=== PATIENT | male | born 1950 | race Caucasian/White ===

== ENCOUNTER 2018-08-22 17:08 | Emergency (ER) | payer MEDICARE, BC ==
[2018-08-22] MEDS ORDERED: Lidocaine 2% Jelly 10 ML Urojet MUCMEM ONE (17:54)
--- NOTE | 2018-08-22 18:00 | EDM.PDOC ---
<Dean Farias - Last Filed: 08/22/18 19:31> ED HPI GENERAL MEDICAL PROBLEM - General Chief Complaint: Genitourinary Problem Stated Complaint: UNABLE TO URINATE Time Seen by Provider: 08/22/18 17:42 - Related Data Allergies Allergy/AdvReac Type Severity Reaction Status Date / Time hydromorphone [From Dilaudid] Allergy Hallucinati Verified 08/22/18 17:40 ons Home Meds: Home Meds Sulfamethoxazole/Trimethoprim [Septra DS] 1 tab PO Q12H #10 tablet 08/22/18 [Rx] Course - Vital Signs Last Recorded V/S: Last Vital Signs Temp 36.0 C 08/22/18 17:38 Pulse 94 08/22/18 17:38 Resp 20 08/22/18 17:38 BP 215/114 H 08/22/18 17:38 Pulse Ox 92 L 08/22/18 17:38 - Orders/Labs/Meds Labs: Laboratory Tests 08/22/18 Range/Units 18:00 Urine Color Yellow (Yellow) Urine Appearance Cloudy H (Clear) Urine pH 7.0 (5.0-8.0) Ur Specific [place] 1.020 (1.005-1.030) Urine Protein 1+ H (Negative) Urine Glucose (UA) Negative (Negative) Urine Ketones Negative (Negative) Urine Occult Blood 2+ H (Negative) Urine Nitrite Negative (Negative) Urine Bilirubin Negative (Negative) Urine Urobilinogen 0.2 (0.2-1.0) Ur Leukocyte Esterase 2+ H (Negative) Urine RBC 20-30 H (0-5) /hpf Urine WBC 40-50 H (0-5) /hpf Ur Squamous Epith Cells 20-30 H (0-5) /hpf Urine Bacteria Many H (FEW) /hpf Urine Mucus Not seen (FEW) /hpf Meds: Medications Discontinued Medications Generic Name Dose Route Start Last Admin Trade Name Freq PRN Reason Stop Dose Admin Lidocaine HCl 10 ml 08/22/18 17:54 08/22/18 19:14 Xylocaine 2% Jelly MUCMEM 08/22/18 17:55 10 ml ONETIME ONE Administration Lidocaine HCl Confirm 08/22/18 18:35 08/22/18 19:28 Xylocaine 2% Jelly Administered 08/22/18 18:36 Not Given Dose 10 ml .ROUTE .STK-MED ONE Trimethoprim/Sulfamethoxazole 1 tab 08/22/18 18:20 08/22/18 19:14 Septra Ds PO 08/22/18 18:21 1 tab ONETIME ONE Administration - Re-Assessments/Exams Free Text/Narrative Re-Assessment/Exam: 08/22/18 19:36 Patient had well over 500 mL out and is feeling much better. The got a small size a Collins catheter in place that appears to be working very well the patient is no longer in pain history good amounts of urine still. Patient will be discharged home Departure - Departure Time of Disposition: 19:31 Disposition: Home, Self-Care 01 Clinical Impression: Urinary obstruction, UTI (urinary tract infection) - Discharge Information Prescriptions: Sulfamethoxazole/Trimethoprim [Septra DS] 1 tab PO Q12H #10 tablet Instructions: Urinary Tract Infection, Adult, [id number] Referrals: Carlos Wells MD [Primary Care Provider] - Radha Bhatia MD [Consulting Physician] - Forms: ED Department Discharge Additional Instructions: You were seen in the emergency room for the inability to urinate since noon. Workup in the ER included a bladder scan, which found approximately 500 mL of urine in your bladder. A catheter was placed to drain your bladder. Empty the bag as instructed by the nurse. Make sure that the bag is below your body height when you lie down, so that urine does not backflow into your bladder. Your urinalysis indicates that you have a urinary tract infection. A sample of your urine has been sent for culture. You have been started on the antibiotic Bactrim, also known as Septra. A prescription for Septra has been sent to the [facility], located in the [facility] grocery store. Take one tablet of Septra every 12 hours, starting tomorrow morning, 08/23/2018, as prescribed. Finish the entire prescription unless told otherwise by Dr. Bhatia. Follow-up with your Urologist, Dr. Bhatia, in approximately 3 days = 08/25/2018. At that visit, have them check on your urine culture results, to make sure that you are on the correct antibiotic. If any other problems, please do not hesitate to return to the ER. Follow-up with your regular provider for a recheck your blood pressure on Friday. <Elier Tomas - Last Filed: 08/24/18 20:14> ED HPI GENERAL MEDICAL PROBLEM - General Source of Information: Reports: Patient, Family (), RN Notes Reviewed History Limitations: Reports: No Limitations - History of Present Illness INITIAL COMMENTS - FREE TEXT/NARRATIVE: The patient has a history of prostate cancer, status post radioactive prostate seeding around 2003. His states that he gets urinary tract infections about 2-3 times a year. He's had difficulty urinating for the past few weeks, and unable to urinate at all since around noon today. He states that he was seen at the walk-in clinic in [place] earlier today. A urinalysis was performed , which, the patient was told, looked good. He was told that a culture was sent , but he was not started on antibiotics. No bladder scan was performed. He now presents to our ED in some distress, due to the inability to urinate, with suprapubic abdominal pain. He denies having flank pain. No recent fever. No recent nausea or vomiting. The patient's PCP is Dr. Carlos Wells His Urologist is Dr. Radha Bhatia. Bladder Pain Score (Numeric/FACES): 10 Past Medical History HEENT History: Reports: Impaired Vision Cardiovascular History: Reports: CAD, Heart Failure, High Cholesterol, Hypertension, [place] (2001) Respiratory History: Reports: Asthma (suspected), Sleep Apnea (nightly CPAP 13) Musculoskeletal History: Reports: Back Pain, Chronic, Osteoarthritis Endocrine/Metabolic History: Reports: Hypothyroidism, Obesity/BMI 30+ Oncologic (Cancer) History: Reports: Prostate - Past Surgical History Cardiovascular Surgical History: Reports: Coronary Artery Bypass (3 vessel, 2001 ), Coronary Artery Stent (x 4 total), Other (See Below) (coronary angiogram x 3) Male Surgical History: Reports: Prostate Biopsy, Other (See Below) ( Radioactive prostate seeding around 2003) Social & Family History - Tobacco Use Smoking Status *Q: Never Smoker - Alcohol Use Alcohol Use History: No - Recreational Drug Use Recreational Drug Use: No - Living Situation & Occupation Living situation: Reports: , with Spouse, with Family (1 child) Occupation: Retired ED ROS GENERAL - Review of Systems Review Of Systems: ROS reveals no pertinent complaints other than HPI. ED EXAM, RENAL/ - Physical Exam Exam: See Below Exam Limited By: No Limitations General Appearance: Alert, WD/WN, Mild Distress (uncomfortable while urinary catheter is being placed) Eye Exam: Bilateral Eye: EOMI, Normal Inspection Ears: Normal External Exam, Hearing Grossly Normal Nose: Normal Inspection Throat/Mouth: Normal Inspection, Normal Lips, Normal Voice, No Airway Compromise Head: Atraumatic, Normocephalic Neck: Normal Inspection, Full Range of Motion Respiratory/Chest: No Respiratory Distress, Lungs Clear, Normal Breath Sounds, No Accessory Muscle Use Cardiovascular: Normal Peripheral Pulses, Regular Rate, Rhythm, No Gallop, No JVD, No Murmur, No Rub GI/Abdominal: Normal Bowel Sounds, Soft, Non-Tender (including suprapubically), No Organomegaly, No Distention, No Abnormal Bruit, No Mass, Other (Obese) (Male) Exam: No: Circumcised Rectal (Males) Exam: Deferred Extremities: Normal Inspection, Normal Range of Motion, Normal Capillary Refill Neurological: Alert, Oriented, Normal Cognition, No Motor/Sensory Deficits Psychiatric: Normal Affect Skin Exam: Warm, Dry, Intact, Normal Color, No Rash Course - Orders/Labs/Meds Labs: Laboratory Tests 08/22/18 Range/Units 18:00 Urine Color Yellow (Yellow) Urine Appearance Cloudy H (Clear) Urine pH 7.0 (5.0-8.0) Ur Specific [place] 1.020 (1.005-1.030) Urine Protein 1+ H (Negative) Urine Glucose (UA) Negative (Negative) Urine Ketones Negative (Negative) Urine Occult Blood 2+ H (Negative) Urine Nitrite Negative (Negative) Urine Bilirubin Negative (Negative) Urine Urobilinogen 0.2 (0.2-1.0) Ur Leukocyte Esterase 2+ H (Negative) Urine RBC 20-30 H (0-5) /hpf Urine WBC 40-50 H (0-5) /hpf Ur Squamous Epith Cells 20-30 H (0-5) /hpf Urine Bacteria Many H (FEW) /hpf Urine Mucus Not seen (FEW) /hpf - Re-Assessments/Exams Free Text/Narrative Re-Assessment/Exam: 08/22/18 17:59 The bladder scan read 492, 522, and 487 mL of urine. A pediatric-sized Collins catheter has been able to be placed, and is beginning to drain urine. I have ordered a urinalysis, but I do not see an indication for any other workup at this time. The Collins will be placed to a leg bag, and the patient can follow-up with his Urologist. 08/22/18 18:20 The patient's urinalysis is consistent with a UTI. I have ordered a urine culture, and will start him on oral Bactrim. As above, I will discharge him home with a Collins to leg bag, and have him follow-up with his Urologist this week. 08/22/18 18:28 Notified that Judith PERRY is having difficulty with the Collins catheter. She is able to advance the catheter into the urethra and is draining urine, but the patient complains of severe pain whenever she tries to inflate the balloon, suggesting that the tip is not in the bladder. I had her remove the catheter. She will Urojet, then try placing a coud catheter. 08/22/18 19:[address] Farias, and care of the patient turned over to him at this time, for change of shift. Departure - Departure Condition: Good - Discharge Information *PRESCRIPTION DRUG MONITORING PROGRAM REVIEWED*: Not Applicable *COPY OF PRESCRIPTION DRUG MONITORING REPORT IN PATIENT KEO: Not Applicable
[2018-08-22] MEDS ORDERED: Sulfamethoxazole/Trimethoprim 800-160 MG Tab PO ONE (18:20)
[2018-08-22] MEDS ORDERED: Lidocaine 2% Jelly 10 ML Urojet ONE (18:35)
== END 2018-08-22 19:56 | disposition home or self-care (01) ==
LOC: JD.ED 17:08
DX: N13.9 Obstructive and reflux uropathy, unspecified (principal); N39.0 Urinary tract infection, site not specified; I11.0 Hypertensive heart disease with heart failure; I50.9 Heart failure, unspecified; Z79.899 Other long term (current) drug therapy; E78.00 Pure hypercholesterolemia, unspecified; I25.2 Old myocardial infarction; I25.10 Atherosclerotic heart disease of native coronary artery without angina pectoris; E03.9 Hypothyroidism, unspecified; J45.909 Unspecified asthma, uncomplicated; Z95.1 Presence of aortocoronary bypass graft; Z85.46 Personal history of malignant neoplasm of prostate; Z88.5 Allergy status to narcotic agent
CPT/HCPCS: 51702; 51798; 81001; 87086; 99283; A9270-GY

== ENCOUNTER 2019-09-19 15:38 | Emergency (ER) | payer MEDICARE, BC ==
[2019-09-19] MEDS ORDERED: Sodium Chloride 0.9% 10 ML Syringe FLUSH PRN (15:55)
--- NOTE | 2019-09-19 17:01 | EDM.PDOC ---
ED HPI GENERAL MEDICAL PROBLEM - General Chief Complaint: Cardiovascular Problem Stated Complaint: LOW PULSE Time Seen by Provider: 09/19/19 15:44 Source of Information: Reports: Patient History Limitations: Reports: No Limitations - History of Present Illness INITIAL COMMENTS - FREE TEXT/NARRATIVE: Patient is a 69-year-old male who presents to the emergency department with complaints of a low pulse. He states that yesterday he was "feeling not right ". He put on his pulse ox and it showed that his pulse was in the 30s. Today he went to the [facility] walk-in clinic for his symptoms of fatigue and dyspnea with exertion. He denies any chest pain or dizziness. He was referred to the emergency department by the [facility] walk-in [facility]. He does have a history of bypass 12 to 15 years ago, as well as stents 8 to 10 years ago. These were done at [facility] in [place]. Past medical history is otherwise significant for coronary artery disease, heart failure, high cholesterol, hypertension, asthma, and sleep apnea. - Related Data Allergies Allergy/AdvReac Type Severity Reaction Status Date / Time hydromorphone [From Dilaudid] Allergy Hallucinati Verified 09/19/19 15:49 ons Home Meds: Home Meds Isosorbide Dinitrate 10 mg PO BID 09/19/19 [History] Losartan [Cozaar] 100 mg PO DAILY 09/19/19 [History] carvediloL [Carvedilol] 25 mg PO BID 09/19/19 [History] Past Medical History HEENT History: Reports: Impaired Vision Cardiovascular History: Reports: CAD, Heart Failure, High Cholesterol, Hypertension, [place] Other Cardiovascular History: triple bypass and unsure of stents possbily 4 total Respiratory History: Reports: Asthma, Sleep Apnea Genitourinary History: Reports: Prostate Disorder Musculoskeletal History: Reports: Back Pain, Chronic, Osteoarthritis Endocrine/Metabolic History: Reports: Hypothyroidism, Obesity/BMI 30+ Oncologic (Cancer) History: Reports: Prostate - Past Surgical History Cardiovascular Surgical History: Reports: Coronary Artery Bypass, Coronary Artery Stent, Other (See Below) Male Surgical History: Reports: Prostate Biopsy, Other (See Below) Social & Family History - Tobacco Use Smoking Status *Q: Never Smoker - Caffeine Use Caffeine Use: Reports: Soda - Recreational Drug Use Recreational Drug Use: No - Living Situation & Occupation Living situation: Reports: , with Spouse, with Family (1 child) Occupation: Retired ED ROS GENERAL - Review of Systems Review Of Systems: See Below Constitutional: Reports: Fatigue. Denies: Fever, Chills HEENT: Reports: No Symptoms Respiratory: Reports: No Symptoms. Denies: Shortness of Breath, Cough Cardiovascular: Reports: Dyspnea on Exertion. Denies: Chest Pain, Edema, Lightheadedness, Orthopnea, Palpitations, Syncope Endocrine: Reports: No Symptoms GI/Abdominal: Reports: No Symptoms : Reports: No Symptoms Musculoskeletal: Reports: No Symptoms, Muscle Pain Neurological: Reports: No Symptoms Psychiatric: Reports: No Symptoms Hematologic/Lymphatic: Reports: No Symptoms Immunologic: Reports: No Symptoms ED EXAM, GENERAL - Physical Exam Exam: See Below Exam Limited By: No Limitations General Appearance: Alert, WD/WN, No Apparent Distress Respiratory/Chest: No Respiratory Distress, Lungs Clear, Normal Breath Sounds, No Accessory Muscle Use, Chest Non-Tender Cardiovascular: Normal Peripheral Pulses, No Edema, No Gallop, No JVD, No Murmur , No Rub, Other (Regularly irregular) GI/Abdominal: Normal Bowel Sounds, Soft, Non-Tender, No Organomegaly, No Distention, No Abnormal Bruit, No Mass Extremities: Normal Inspection, Normal Range of Motion, Non-Tender, Normal Capillary Refill, No Pedal Edema Neurological: Alert, Oriented, CN II-XII Intact, Normal Cognition, Normal Gait, Normal Reflexes, No Motor/Sensory Deficits Psychiatric: Normal Affect, Normal Mood Skin Exam: Warm, Dry, Intact, Normal Color, No Rash Course - Vital Signs Last Recorded V/S: Last Vital Signs Temp 97.1 F 09/19/19 15:45 Pulse 30 L 09/19/19 15:45 Resp 20 09/19/19 15:45 BP 166/86 H 09/19/19 15:45 Pulse Ox 93 L 09/19/19 15:45 - Orders/Labs/Meds Orders: Active Orders 24 hr Category Date Time Status Cardiac Monitoring [RC] . DIRECTED Care 09/19/19 15:55 Active EKG Documentation Completion [RC] STAT Care 09/19/19 15:55 Active Holter Monitor 48 Hours [RC] .PRN Care 09/19/19 20:10 Active Peripheral IV Care [RC] . DIRECTED Care 09/19/19 15:55 Active Chest 1V Frontal [CR] Stat Exams 09/19/19 15:55 Taken Peripheral IV Insertion Adult [OM.PC] Stat Oth 09/19/19 15:55 Ordered Labs: Laboratory Tests 09/19/19 09/19/19 09/19/19 Range/Units 16:12 16:12 16:24 WBC 6.42 (4.23-9.07) K/mm3 RBC 4.08 L (4.63-6.08) M/mm3 Hgb 12.7 L (13.7-17.5) gm/dl Hct 40.6 (40.1-51.0) % MCV 99.5 H (79.0-92.2) fl MCH 31.1 (25.7-32.2) pg MCHC 31.3 L (32.2-35.5) g/dl RDW Std Deviation 49.5 H (35.1-43.9) fL Plt Count 183 (163-337) K/mm3 MPV 9.7 (9.4-12.3) fl Neut % (Auto) 70.3 H (34.0-67.9) % Lymph % (Auto) 17.4 L (21.8-53.1) % [place] % (Auto) 10.9 (5.3-12.2) % Eos % (Auto) 1.1 (0.8-7.0) Baso % (Auto) 0.3 (0.1-1.2) % Neut # (Auto) 4.51 (1.78-5.38) K/mm3 Lymph # (Auto) 1.12 L (1.32-3.57) K/mm3 [place] # (Auto) 0.70 (0.30-0.82) K/mm3 Eos # (Auto) 0.07 (0.04-0.54) K/mm3 Baso # (Auto) 0.02 (0.01-0.08) K/mm3 Sodium 143 (136-145) mEq/L Potassium 4.2 (3.5-5.1) mEq/L Chloride 105 (98-107) mEq/L Carbon Dioxide 30 (21-32) mEq/L Anion Gap 12.2 (5-15) BUN 21 H (7-18) mg/dL Creatinine 1.1 (0.7-1.3) mg/dL Est Cr Clr Drug Dosing 62.18 mL/min Estimated GFR (MDRD) > 60 (>60) mL/min BUN/Creatinine Ratio 19.1 H (14-18) Glucose 122 H (80-115) mg/dL Calcium 9.6 (8.5-10.1) mg/dL Phosphorus (2.6-4.7) mg/dL Magnesium 1.8 (1.8-2.4) mg/dl Total Bilirubin 0.7 (0.2-1.0) mg/dL AST 20 (15-37) U/L ALT 45 (16-63) U/L Alkaline Phosphatase 34 L (46-116) U/L Troponin I 0.040 (0.00-0.056) ng/mL NT-Pro-B Natriuret Pep (0-125) pg/mL Total Protein 6.6 (6.4-8.2) g/dl Albumin 3.5 (3.4-5.0) g/dl Globulin 3.1 gm/dL Albumin/Globulin Ratio 1.1 (1-2) Free T4 0.83 (0.76-1.46) ng/dL TSH 3rd Generation 3.936 H (0.358-3.74) uIU/mL 09/19/19 09/19/19 09/19/19 Range/Units 16:24 16:24 19:12 WBC (4.23-9.07) K/mm3 RBC (4.63-6.08) M/mm3 Hgb (13.7-17.5) gm/dl Hct (40.1-51.0) % MCV (79.0-92.2) fl MCH (25.7-32.2) pg MCHC (32.2-35.5) g/dl RDW Std Deviation (35.1-43.9) fL Plt Count (163-337) K/mm3 MPV (9.4-12.3) fl Neut % (Auto) (34.0-67.9) % Lymph % (Auto) (21.8-53.1) % [place] % (Auto) (5.3-12.2) % Eos % (Auto) (0.8-7.0) Baso % (Auto) (0.1-1.2) % Neut # (Auto) (1.78-5.38) K/mm3 Lymph # (Auto) (1.32-3.57) K/mm3 [place] # (Auto) (0.30-0.82) K/mm3 Eos # (Auto) (0.04-0.54) K/mm3 Baso # (Auto) (0.01-0.08) K/mm3 Sodium (136-145) mEq/L Potassium (3.5-5.1) mEq/L Chloride (98-107) mEq/L Carbon Dioxide (21-32) mEq/L Anion Gap (5-15) BUN (7-18) mg/dL Creatinine (0.7-1.3) mg/dL Est Cr Clr Drug Dosing mL/min Estimated GFR (MDRD) (>60) mL/min BUN/Creatinine Ratio (14-18) Glucose (80-115) mg/dL Calcium (8.5-10.1) mg/dL Phosphorus 4.9 H (2.6-4.7) mg/dL Magnesium (1.8-2.4) mg/dl Total Bilirubin (0.2-1.0) mg/dL AST (15-37) U/L ALT (16-63) U/L Alkaline Phosphatase (46-116) U/L Troponin I 0.043 (0.00-0.056) ng/mL NT-Pro-B Natriuret Pep 3363 H (0-125) pg/mL Total Protein (6.4-8.2) g/dl Albumin (3.4-5.0) g/dl Globulin gm/dL Albumin/Globulin Ratio (1-2) Free T4 (0.76-1.46) ng/dL TSH 3rd Generation (0.358-3.74) uIU/mL Meds: Medications Discontinued Medications Generic Name Dose Route Start Last Admin Trade Name Freq PRN Reason Stop Dose Admin Sodium Chloride 10 ml 09/19/19 15:55 09/19/19 17:00 Saline Flush FLUSH 10 ml ASDIRECTED PRN Administration Keep Vein Open - Re-Assessments/Exams Free Text/Narrative Re-Assessment/Exam: On exam, patient's heart rate is irregularly irregular. supervisor operations shows a heart rate of 59, however he is in ventricular bigeminy and only perfusing every other beat. Pulse rate is 30. Patient has been overall asymptomatic. He has had no dizziness or significant shortness of breath. He states he has felt more tired than normal and if he exerts himself he becomes short of breath. Pacer pads have been applied out of precaution. We will complete a cardiac work-up including CBC, CMP, lipase, magnesium, TSH, free T4, EKG, and chest x-ray. Once results are available, I will consult cardiology. He states that his health technician is Dr. Marshall at [facility] in [place]. 09/19/19 17:49 Hematology was significant for slightly low at 12.7, BUN 21, TSH slightly elevated at 3.936. Troponin was found to be negative. Called and spoke with the health technician on-call at [facility], Dr. Whitmore. She reviewed the EKG. She recommended that we repeat a troponin at 3 hours past the previous draw. If troponin is still negative, she recommended that we hook the patient up to 48-hour Holter monitor, order an outpatient echocardiogram and stress test and have him follow-up with his health technician Dr. Mireles as soon as possible. She verbalized that if he would develop chest pain that he would need to be admitted, otherwise he will would be able to go home. On review of the mainframe systems engineer, patient has been going in and out of bigeminy. He does have periods where he is in normal sinus rhythm perfusing all beats. He continues to deny any shortness of breath or chest pain. 09/19/19 20:11 Repeat troponin was also negative. Patient has been in normal sinus rhythm more often than in ventricular bigeminy for the last couple hours. Repeat EKG was completed of normal sinus rhythm and no acute ischemia or cute abnormalities were found. He continues to be free of chest pain, dizziness, and shortness breath. We will discharge patient home on 48-hour Holter monitor as recommended by [facility] cardiology. Patient's blood pressure is elevated at 194/ 69. He is due to take his evening dose of his home medications of losartan, carvedilol, and isosorbide. He took those medications now. He does not want to wait in the ER for the medications to take effect and for a lower blood pressure reading. He would like to go home. Completed outpatient orders for a Cardiolyte stress test as well as an echocardiogram. Patient is going to call his health technician Dr. Marshall first thing Friday to see if he can move up his appointment to sooner. He has been educated that if he should develop any symptoms of bradycardia including dizziness, chest pain, shortness of breath, he should return to the emergency department immediately. He is in agreement with this plan. Discharge instructions as documented. Departure - Departure Time of Disposition: 20:25 Disposition: Home, Self-Care 01 Condition: Good Clinical Impression: Ventricular bigeminy Instructions: Palpitations, Isjp-[id number] Referrals: PCP,Not In Area [Primary Care Provider] - Ally Marshall MD [Physician] - Forms: ED Department Discharge Additional Instructions: You were seen in the emergency department today for a low pulse rate since yesterday. Your work-up included blood work, chest x-ray, and EKGs of your heart. It was determined that you have been going into a rhythm called ventricular bigeminy intermittently. It was determined that you are not always in this rhythm, however it comes and goes. Your lab work show that you have not had a heart attack and there is not impaired blood flow to your heart. Your blood work was found normal. After consult with cardiology at [facility], it was recommended that you be discharged home on a Holter monitor to monitor your heart rhythms for the next 48 hours. It was also recommended that you undergo a stress test as well as an echocardiogram. Outpatient orders for these tests have been submitted. You will be contacted to arrange a time for this testing. As we discussed, I would recommend that you call Dr. Marshall's office first thing on Friday to see if she can move up your appointment to a sooner date. If you should experience any symptoms of a low heart rate or chest pain including dizziness, shortness of breath, or chest pain, recommend that you return to the emergency department immediately. Sepsis Event Note - Evaluation Sepsis Screening Result: No Definite Risk - Focused Exam Vital Signs: Vital Signs Temp Pulse Resp BP Pulse Ox 09/19/19 15:45 97.1 F 30 L 20 166/86 H 93 L Date Exam was Performed: 09/19/19 Time Exam was Performed: 21:43 - My Orders Last 24 Hours: My Active Orders 09/19/19 15:55 Cardiac Monitoring [RC] . DIRECTED EKG Documentation Completion [RC] STAT Peripheral IV Care [RC] . DIRECTED Chest 1V Frontal [CR] Stat Peripheral IV Insertion Adult [OM.PC] Stat 09/19/19 20:10 Holter Monitor 48 Hours [RC] .PRN - Assessment/Plan Last 24 Hours: My Active Orders 09/19/19 15:55 Cardiac Monitoring [RC] . DIRECTED EKG Documentation Completion [RC] STAT Peripheral IV Care [RC] . DIRECTED Chest 1V Frontal [CR] Stat Peripheral IV Insertion Adult [OM.PC] Stat 09/19/19 20:10 Holter Monitor 48 Hours [RC] .PRN
--- NOTE | 2019-09-20 09:47 | CR ---
Chest: PA view of the chest was obtained. Comparison: No prior chest imaging is available. Heart is enlarged. Pulmonary vessels are congested. Bony structures are grossly intact. Previous sternotomy is noted. Impression: 1. Findings suspicious for mild pulmonary vascular congestion. Uncertain if this is acute or chronic without old study. Diagnostic code #3 Study was dictated in MDT
== END 2019-09-19 20:51 | disposition home or self-care (01) ==
LOC: JD.ED 15:38
DX: R00.8 Other abnormalities of heart beat (principal); I25.10 Atherosclerotic heart disease of native coronary artery without angina pectoris; E78.00 Pure hypercholesterolemia, unspecified; I25.2 Old myocardial infarction; I11.0 Hypertensive heart disease with heart failure; I50.9 Heart failure, unspecified; J45.909 Unspecified asthma, uncomplicated; E66.9 Obesity, unspecified; Z68.41 Body mass index [BMI] 40.0-44.9, adult; Z88.5 Allergy status to narcotic agent; Z79.899 Other long term (current) drug therapy
CPT/HCPCS: 36415; 71045; 71045-26; 80053; 83735; 83880; 84100; 84439; 84443; 84484; 85025; 93005; 93225; 93226; 99283; 99285-25

== ENCOUNTER 2020-05-13 22:43 | Emergency (ER) | payer MEDICARE, BC ==
[2020-05-13] MEDS ORDERED: Lidocaine 2% Jelly 10 ML Urojet ONE (23:12)
[2020-05-13] MEDS ORDERED: Ketorolac 30 MG/ML SDV IVPUSH STA (23:13)
[2020-05-13] MEDS ORDERED: Lidocaine 2% Jelly 10 ML Urojet MUCMEM ONE (23:15)
--- NOTE | 2020-05-13 23:21 | EDM.PDOC ---
ED HPI GENERAL MEDICAL PROBLEM - General Chief Complaint: Genitourinary Problem Stated Complaint: UNINARY PAIN Time Seen by Provider: 05/13/20 22:54 Source of Information: Reports: Patient, Family () History Limitations: Reports: No Limitations - History of Present Illness INITIAL COMMENTS - FREE TEXT/NARRATIVE: Mr. Pereyra is a pleasant 69-year-old gentleman with a past medical history significant for prostate cancer, status post brachytherapy, with recurrent urinary retention, who now presents the ED with lower abdominal pain and fullness sensation, along with decreased urine output since around 18:00 this evening. He has had nausea, and dry heaved here in the ED. No recent fever. He denies having flank pain. The patient states that his current symptoms are the same as when he has previously had urinary retention. Here in the ED, the patient's initial BP is found to be elevated at 196/116, with tachycardia of 108 bpm. He is afebrile. Prior to this evening, the patient denies having a recent fever, chills, sore throat, ear pain, nasal or sinus congestion, cough, dyspnea, chest pain, palpitations, nausea, vomiting, constipation, diarrhea, abdominal pain, urinary symptoms, recent weight gain or weight loss, recent bloody bowel movements or black bowel movements, recent joint aches, headaches, or rashes. The patient's PCP is Dr. Carlos Wells. His Urologist is Dr. Radha Bhatia. His Electrical Line Splicer is Dr. Ally Marshall. He states that he already received an influenza vaccine this season. Lower Abdomen Pain Score (Numeric/FACES): 10 - Related Data Allergies Allergy/AdvReac Type Severity Reaction Status Date / Time hydromorphone [From Dilaudid] Allergy Hallucinati Verified 05/13/20 22:49 ons Home Meds: Home Meds Isosorbide Dinitrate 10 mg PO BID 09/19/19 [History] Losartan [Cozaar] 100 mg PO DAILY 09/19/19 [History] carvediloL [Carvedilol] 25 mg PO BID 09/19/19 [History] Past Medical History HEENT History: Reports: Impaired Vision Cardiovascular History: Reports: CAD, Heart Failure, High Cholesterol, Hypertension, NM (x 2001) Respiratory History: Reports: Asthma (suspected, not tested), Sleep Apnea (nightly CPAP 13) Musculoskeletal History: Reports: Osteoarthritis Endocrine/Metabolic History: Reports: Hypothyroidism, Obesity/BMI 30+ Oncologic (Cancer) History: Reports: Prostate (s/p brachytherapy around 2003) - Past Surgical History Cardiovascular Surgical History: Reports: Coronary Artery Bypass (x 3 vessel, 2001), Coronary Artery Stent (x 4), Other (See Below) (Coronary angiogram x 4) Oncologic Surgical History: Reports: Other (See Below) (Prostate bx. Prostate brachytherapy around 2003) Social & Family History - Tobacco Use Tobacco Use Status *Q: Never Tobacco User - Caffeine Use Caffeine Use: Reports: Soda - Alcohol Use Alcohol Use History: No - Recreational Drug Use Recreational Drug Use: No - Living Situation & Occupation Living situation: Reports: , with Spouse Occupation: Retired ED ROS GENERAL - Review of Systems Review Of Systems: Comprehensive ROS is negative, except as noted in HPI. ED EXAM, RENAL/ - Physical Exam Exam: See Below Exam Limited By: No Limitations General Appearance: Alert, WD/WN, Mild Distress (appears uncomfortable, pacing around exam room) Eye Exam: Bilateral Eye: EOMI, Normal Inspection Ears: Normal External Exam, Hearing Grossly Normal Nose: Normal Inspection Throat/Mouth: Normal Inspection, Normal Lips, Normal Voice, No Airway Compromise Head: Atraumatic, Normocephalic Neck: Normal Inspection, Full Range of Motion Respiratory/Chest: No Respiratory Distress, Lungs Clear, Normal Breath Sounds, No Accessory Muscle Use Cardiovascular: Normal Peripheral Pulses, Regular Rate, Rhythm, No Gallop, No JVD, No Murmur, No Rub GI/Abdominal: Normal Bowel Sounds, Soft, No Organomegaly, No Abnormal Bruit, No Mass, Distended (not tense), Tender (suprapubically only, nontender elsewhere) Back Exam: Normal Inspection, Full Range of Motion, NT Extremities: Normal Inspection, Normal Range of Motion, Normal Capillary Refill Neurological: Alert, Oriented, Normal Cognition, No Motor/Sensory Deficits Psychiatric: Normal Affect Skin Exam: Warm, Dry, Intact, Normal Color, No Rash Course - Vital Signs Last Recorded V/S: Last Vital Signs Temp 35.5 C L 05/13/20 22:49 Pulse 108 H 05/13/20 22:49 Resp 18 05/13/20 22:49 BP 196/116 H 05/13/20 22:49 Pulse Ox - Orders/Labs/Meds Orders: Active Orders 24 hr Category Date Time Status Bladder Scan [RC] ASDIRECTED Care 05/13/20 22:58 Active Insert Collins Catheter [Insert Urinary Catheter] [OM.PC] Care 05/13/20 23:15 Ordered Q24H Urinary Catheter Assessment [RC] ASDIRECTED Care 05/13/20 23:15 Active Meds: Medications Discontinued Medications Generic Name Dose Route Start Last Admin Trade Name Laura PRN Reason Stop Dose Admin Ketorolac Tromethamine 30 mg 05/13/20 23:13 Toradol IVPUSH 05/13/20 23:14 ONETIME STA Lidocaine HCl Confirm 05/13/20 23:12 Xylocaine 2% Jelly Administered 05/13/20 23:13 Dose 10 ml .ROUTE .STK-MED ONE Lidocaine HCl 10 ml 05/13/20 23:15 Xylocaine 2% Jelly MUCMEM 05/13/20 23:16 ONETIME ONE - Re-Assessments/Exams Free Text/Narrative Re-Assessment/Exam: 05/13/20 23:16 A bladder scan obtained at triage finds 691 mL of urine. I have therefore ordered a urojet and Collins catheter to be placed to a leg bag. I was going to order some Dilaudid, but I see from his medical record that he has had an adverse reaction to it. 05/13/20 23:31 Notified by Kellen PERRY that she was unable to place a coud catheter, however, in the meantime, the patient began dribbling urine which is providing him some relief of pressure. She will attempt to place a pediatric catheter. 05/14/20 00:04 Unfortunately, Kellen PERRY + others were unable to place a 12 [place] pediatric catheter. That being said, the patient states that he is currently feeling much better after he was able to dribble some urine out on his own. I am concerned that it is only a matter of time before the patient's bladder fills up again and he is again terribly uncomfortable, and for that reason, I am recommending that he take this time while he is feeling better to go to [facility] ED, where he could be seen by a Urologist. The patient's agrees with me. The patient, however, seems to feel that he will be able to make it until Friday, when he already has an appointment to see his Urologist. We will discharge the patient. Departure - Departure Time of Disposition: 00:06 Disposition: Home, Self-Care 01 Condition: Good Clinical Impression: Urinary retention - Discharge Information *PRESCRIPTION DRUG MONITORING PROGRAM REVIEWED*: Not Applicable *COPY OF PRESCRIPTION DRUG MONITORING REPORT IN PATIENT KEO: Not Applicable Referrals: Carlos Wells MD [Ordering Only Provider] - Radha Bhatia MD [Ordering Only Provider] - Ally Marshall MD [Ordering Only Provider] - Forms: ED Department Discharge Additional Instructions: You were seen in the emergency room after developing progressively worsening lower abdominal pain and pressure, with difficulty urinating. Work-up in the ER included a bladder scan, which found 691 mL of urine. Unfortunately, we were unable to place a Collins catheter in your urethra, however, you were able to urinate some on your own, relieving some of the pressure. As discussed, we recommend that you take this time to go to the [facility], where, if needed, you could be seen by a Urologist to have a catheter placed. You are aware that we do not have a Urologist here in [place], and that if you return to our ER with the same problem, there is not much that we will be able to do to help you. Sepsis Event Note (ED) - Evaluation Sepsis Screening Result: No Definite Risk - Focused Exam Vital Signs: Vital Signs Temp Pulse Resp BP 05/13/20 22:49 35.5 C L 108 H 18 196/116 H - My Orders Last 24 Hours: My Active Orders 05/13/20 22:58 Bladder Scan [RC] ASDIRECTED 05/13/20 23:15 Insert Collins Catheter [Insert Urinary Catheter] [OM.PC] Q24H Urinary Catheter Assessment [RC] ASDIRECTED - Assessment/Plan Last 24 Hours: My Active Orders 05/13/20 22:58 Bladder Scan [RC] ASDIRECTED 05/13/20 23:15 Insert Collins Catheter [Insert Urinary Catheter] [OM.PC] Q24H Urinary Catheter Assessment [RC] ASDIRECTED
== END 2020-05-14 00:23 | disposition home or self-care (01) ==
LOC: JD.ED 22:43
DX: R33.9 Retention of urine, unspecified (principal); R10.30 Lower abdominal pain, unspecified; I11.0 Hypertensive heart disease with heart failure; I50.9 Heart failure, unspecified; I25.10 Atherosclerotic heart disease of native coronary artery without angina pectoris; I25.2 Old myocardial infarction; E66.9 Obesity, unspecified; Z88.5 Allergy status to narcotic agent
CPT/HCPCS: 99283